=== PATIENT | male | born 2005 | race Two or more races ===

== ENCOUNTER 2023-01-10 19:45 | Inpatient (IN) | payer MEDICAID, OTHER ==
[~2023-01-10] VITALS: Ht 170.2 cm; Wt 68.0 kg
[2023-01-10 21:41] LABS: BASOPHILS % (AUTO) 0.2 % (0.0-2.0); EOSINOPHILS % (AUTO) 0.2 % (1.0-6.0); HEMATOCRIT 44.5 % (41-53); HEMOGLOBIN 14.7 g/dL (13.5-17.5); LYMPHOCYTES # (AUTO) 1.1 K/uL (1.0-4.8); LYMPHOCYTES % (AUTO) 10.2 % (22.0-44.0); MEAN CORPUSCULAR HEMOGLOBIN 30.5 pg (26.0-34.0); MEAN CORPUSCULAR HGB CONC 33.1 G/dL (31.0-37.0); MEAN CORPUSCULAR VOLUME 92 fL (80-100); MONOCYTES # (AUTO) 0.7 K/uL (0.1-1.0); MONOCYTES % (AUTO) 6.1 % (2.0-9.0); NEUTROPHILS # (AUTO) 9.3 K/uL (1.8-7.7); NEUTROPHILS % (AUTO) 83.3 % (40.0-70.0); PLATELET COUNT (AUTO) 269 K/uL (150-450); RED BLOOD CELL COUNT(AUTO) 4.83 MIL/uL (4.50-5.90); RED CELL DISTRIBUTION WIDTH 13.1 % (11.5-14.5); WHITE BLOOD COUNT (AUTO) 11.1 K/uL (4.5-11.0)
[2023-01-10 21:52] LABS: ANION GAP 12 mmol/L (8-16); CALCIUM, TOTAL 9.3 mg/dL (8.8-10.5); CARBON DIOXIDE 25 mmol/L (22-29); CHLORIDE 105 mmol/L (98-107); CREATININE 0.99 mg/dL (0.60-1.30); GLOMERULAR FILTR. RATE CALC > 60 mL/min (>60); GLUCOSE,RANDOM 97 mg/dL (70-110); POTASSIUM 3.8 mmol/L (3.5-5.1); SODIUM SERUM 142 mmol/L (136-145); UREA NITROGEN, BLOOD 18 mg/dL (7-18)
[2023-01-10 21:58] LABS: ALANINE AMINOTRANSFERASE 26 U/L (12-78); ALBUMIN 4.3 g/dL (3.4-5.0); ALKALINE PHOSPHATASE 96 U/L (46-116); ASPARTATE AMINOTRANSFERASE 22 U/L (15-37); BILIRUBIN,TOTAL 0.5 mg/dL (0.1-1.0)
[2023-01-10 22:02] LABS: ALCOHOL, BLOOD (SERUM) < 3 mg/dL (0-10)
[2023-01-10] MEDS ORDERED: PERTUSS(ACELL),DIPH,TET VAC/PF 0.5 ML SYRINGE IM. ONE (22:45)
[2023-01-11 02:59] LABS: COVID AG,FIA SOURCE NASAL SWAB
[2023-01-11 03:25] LABS: SARS-COV2 (COVID) ANTIGEN,FIA Negative (Negative)
[2023-01-11] MEDS: LORazepam 2 MG TABLET PO PRN ×2 (04:27→12:43)
[2023-01-11] MEDS: HALOPERIDOL 5 MG TABLET PO PRN ×2 (04:27→12:43)
[2023-01-11 05:06] LABS: APPEARANCE,URINE CLEAR (CLEAR); BILIRUBIN,URINE NEGATIVE (NEGATIVE); COLOR,URINE YELLOW (YELLOW); GLUCOSE, URINE (UA) NEGATIVE (NEGATIVE); LEUKOCYTE ESTERASE ,URINE NEGATIVE (NEGATIVE); NITRATE,URINE NEGATIVE (NEGATIVE); OCCULT BLOOD,URINE NEGATIVE (NEGATIVE); PH,URINE 5.5 (5.0-8.0); PROTEIN,URINE TRACE mg/dL (NEGATIVE); UROBILINOGEN,URINE <=1.0 mg/dL (<=1.0)
[2023-01-11 05:07] LABS: PH,URINE DRUG SCREEN 5.5 (5.0-8.0)
[2023-01-11 05:13] LABS: ALCOHOL, URINE DRUG SCREEN NEGATIVE (NEGATIVE); AMPHET/METH SCREEN,URINE NEGATIVE (NEGATIVE); BARBITURATE SCREEN, URINE NEGATIVE (NEGATIVE); BENZODIAZEPINES SCREEN,URINE NEGATIVE (NEGATIVE); CANNABINOID SCREEN,URINE POSITIVE (NEGATIVE); COCAINE SCREEN,URINE NEGATIVE (NEGATIVE); METHADONE SCREEN, URINE NEGATIVE (NEGATIVE); OPIATE SCREEN,URINE NEGATIVE (NEGATIVE); PHENCYCLIDINE SCREEN,URINE NEGATIVE (NEGATIVE)
[2023-01-11] MEDS ORDERED: DOCUSATE SODIUM 100 MG CAPSULE PO PRN (08:00)
[2023-01-11] MEDS ORDERED: IBUPROFEN 400 MG TABLET PO PRN (08:00)
[2023-01-11] MEDS ORDERED: NICOTINE 14 MG/24 HOUR PATCH TD PRN (08:00)
[2023-01-11] MEDS ORDERED: ALBUTEROL SULFATE HFA 90 MCG/PUFF 8 GM INHALER IH PRN (08:00)
[2023-01-11] MEDS ORDERED: CloNIDine HCL 0.1 MG TABLET PO PRN (08:00)
[2023-01-11] MEDS ORDERED: LOPERAMIDE HCL 2 MG CAPSULE PO PRN (08:00)
[2023-01-11] MEDS ORDERED: PETROLATUM,WHITE 28 GM JELLY TP PRN (08:00)
[2023-01-11] MEDS ORDERED: ACETAMINOPHEN 325 MG TABLET PO PRN (08:00)
[2023-01-11] MEDS ORDERED: GuaiFENesin/D-METHORPHAN [SUGAR-FREE] 200-20MG/10 ML SYRUP UDCUP PO PRN (08:00)
[2023-01-11] MEDS ORDERED: ONDANSETRON HCL 4 MG TABLET PO PRN (08:00)
[2023-01-11] MEDS ORDERED: MAG HYDROX/ALUMINUM HYD/SIMETH ES 30 ML SUSPENSION UDCUP PO PRN (08:00)
[2023-01-11] MEDS ORDERED: MAGNESIUM HYDROXIDE SUSPENSION 30 ML UDCUP PO PRN (08:00)
[2023-01-11 08:28] VITALS: BP 119/62; PULSE 81; RESP 16; TEMP 97.5; O2SAT 97
[2023-01-11] MEDS: RisperiDONE 1 MG TABLET PO SCH ×3 (10:00→20:38)
[2023-01-11] MEDS ORDERED: INFLUENZA VIRUS VACCINE QVS 2023-24 (6MO+)/PF 60 MCG/0.5 ML SYRINGE IM. ONE (11:00)
[2023-01-11 20:24] VITALS: BP 102/63; PULSE 116; RESP 21; TEMP 97.6; O2SAT 98
[2023-01-12] MEDS: ZOLPIDEM TARTRATE 10 MG TABLET PO PRN ×2 (00:36→21:56)
[2023-01-12 08:19] LABS: HEMOGLOBIN A1C 5.4 % (3.8-5.6)
[2023-01-12 08:42] LABS: THYROID STIMULATING HORMONE 1.07 uIU/mL (0.36-3.74)
[2023-01-12 08:56] VITALS: BP 127/80; PULSE 83; RESP 17; TEMP 97.9; O2SAT 100
[2023-01-12] MEDS: RisperiDONE 1 MG TABLET PO SCH ×2 (09:13→21:56)
[2023-01-12 13:27] LABS: CHOL/HDL RATIO 2.6 (4.2-7.3)
[2023-01-12 20:27] VITALS: BP 140/82; PULSE 90; RESP 19; TEMP 97.7; O2SAT 99
[2023-01-12] MEDS: LORazepam 2 MG TABLET PO PRN (21:56)
[2023-01-12] MEDS: HALOPERIDOL 5 MG TABLET PO PRN (21:56)
[2023-01-13] MEDS: RisperiDONE 1 MG TABLET PO SCH (10:01)
== END 2023-01-13 16:10 | disposition left against medical advice (07) | DRG 751 ==
LOC: EMS 19:47 → B2S 01-11 02:59
PROVIDERS: ADMIT Psychiatry & Neurology Psychiatry; ATTEND Psychiatry & Neurology Psychiatry
DX: F29 Unspecified psychosis not due to a substance or known physiological condition (principal); D72.829 Elevated white blood cell count, unspecified; R00.0 Tachycardia, unspecified; S61.210A Laceration without foreign body of right index finger without damage to nail, initial encounter; F12.90 Cannabis use, unspecified, uncomplicated; Z20.822 Contact with and (suspected) exposure to COVID-19; X58.XXXA Exposure to other specified factors, initial encounter; Z53.21 Procedure and treatment not carried out due to patient leaving prior to being seen by health care provider; Y93.89 Activity, other specified; Y92.89 Other specified places as the place of occurrence of the external cause; Y99.8 Other external cause status
CPT/HCPCS: 80053; 80061; 80307; 81003; 83036; 84443; 85025; 90715; 99285; G0480